=== PATIENT | female | born 1955 | race Hispanic/Latino ===

== ENCOUNTER → 2020-02-18 | Outpatient (CLI) | payer OTHER ==
--- NOTE | 2020-02-18 09:30 | NUR ---
MBSS COMPLETED. -S/S OF ASPIRATION. RECOMMEND REGULAR TEXTURE, THIN LIQUIDS; PILLS WHOLE WITH THIN LIQUIDS. TILE PRESSER PROVIDED Pt WITH RESULTS AND RECOMMENDATIONS VIA VERBAL AND WRITTEN MODALITY. ALL QUESTIONS ANSWERED AT THIS TIME. Addendum: 02/18/20 at 1305 by LINDSAY VO, [facility], [address] Amended: Links added.
== END | disposition home or self-care (01) ==
LOC: EDBD 01-07 10:00 → RAH 08:53
PROVIDERS: ATTEND Internal Medicine Gastroenterology
DX: R13.12 Dysphagia, oropharyngeal phase (principal)
CPT/HCPCS: 74230; 92611

== ENCOUNTER → 2021-06-08 | Outpatient (CLI) | payer OTHER, MEDICARE | END | disposition home or self-care (01) | LOC: RAH 13:41 | PROVIDERS: ATTEND Family Medicine | DX: G45.9 Transient cerebral ischemic attack, unspecified (principal); G31.9 Degenerative disease of nervous system, unspecified; H50.9 Unspecified strabismus; I67.82 Cerebral ischemia | CPT/HCPCS: 70551 ==

== ENCOUNTER 2021-07-04 06:29 | Observation (INO) | payer OTHER, MEDICARE ==
[2021-07-01 10:19] LABS: BASOPHILS % (AUTO) 0.8 % (0.0-5.0); EOSINOPHILS % (AUTO) 3.6 % (0.0-8.0); HEMATOCRIT 37.5 % (36-48); LYMPHOCYTES % (AUTO) 25.7 % (21.0-51.0); MEAN CORPUSCULAR HEMOGLOBIN 28.8 pg (27.0-33.0); MEAN CORPUSCULAR HGB CONC 31.7 g/dL (32.0-36.0); MEAN CORPUSCULAR VOLUME 90.8 fL (79-99); MONOCYTES % (AUTO) 6.9 % (3.0-13.0); NEUTROPHILS % (AUTO) 62.1 % (40.0-77.0); PLATELET COUNT (AUTO) 440 K/uL (130-400); RED BLOOD CELL COUNT(AUTO) 4.13 MIL/uL (4.00-5.50); RED CELL DISTRIBUTION WIDTH 13.5 % (11.0-15.5); WHITE BLOOD COUNT (AUTO) 9.5 K/uL (4.8-10.8)
[2021-07-01 10:30] LABS: APPEARANCE,URINE Clear (CLEAR); BILIRUBIN,URINE Negative (NEGATIVE); COLOR,URINE Yellow (YELLOW); GLUCOSE, URINE (UA) >=1000 mg/dL (NEGATIVE); KETONES,URINE Negative (NEGATIVE); LEUKOCYTE ESTERASE ,URINE Negative (NEGATIVE); NITRATE,URINE Negative (NEGATIVE); OCCULT BLOOD,URINE Negative (NEGATIVE); PROTEIN,URINE POS 2+ mg/dL (NEGATIVE); UROBILINOGEN,URINE 0.2 mg/dL (0.2-1.0)
[2021-07-01 10:30] LABS: INR 0.89 (0.85-1.15); PROTHROMBIN TIME 9.8 SEC (9.6-11.6)
[2021-07-01 10:44] LABS: BACTERIA,URINE Rare /HPF (None Seen); RBC,URINE 0-1 /HPF (0-1); SQUAMOUS EPITHELIAL CELL,UR Rare /HPF (0-2); WBC,URINE 0-1 /HPF (0-1)
[2021-07-01 11:17] LABS: CREATININE 0.9 mg/dL (0.5-1.5); POTASSIUM 4.1 mmol/L (3.5-5.1)
[2021-07-01 13:52] VITALS: BP 160/85
[~2021-07-04] VITALS: Ht 142.2 cm; Wt 107.9 kg
[2021-07-04] VITALS (27 sets, daily range): BP systolic 100–198; BP diastolic 42–89
[~2021-07-04 06:29] MED LIST: BACL10TA PO; CALC-1125 PO; EMPA25TA PO; ESLI600T PO; GABA-529 PO; INSU100V37 SQ; LOSA50TA64 PO; NORT25CA3 PO; OMEP40CA21 PO; ROSU5TAB12 PO
[2021-07-04] MEDS ORDERED: 0.9%NACL 1000ML 1,000 ML IV ONE (06:59)
[2021-07-04] MEDS: CEFAZOLIN SODIUM 1 GM VIAL ONE ×2 (07:15→09:00)
[2021-07-04] MEDS ORDERED: LIDOCAINE PF 100MG/5ML (2%) SYRINGE 5ML ONE (07:34)
[2021-07-04] MEDS ORDERED: MIDAZOLAM HCL 1 MG/ML 2ML VIAL ONE (07:35)
[2021-07-04] MEDS ORDERED: FENTANYL CITRATE PF 50 MCG/1 ML 5ML AMP IV ONE (07:35)
[2021-07-04] MEDS ORDERED: PROPOFOL 10 MG/ML 20ML VIAL IV ONE ×2 (07:35→09:53)
[2021-07-04] MEDS ORDERED: EPHEDRINE SULFATE 50 MG/ML AMPULE ONE (08:46)
[2021-07-04] MEDS ORDERED: ROCURONIUM 10MG/1ML SYR 10 MG/ML ML ONE (09:04)
[2021-07-04] MEDS ORDERED: CEFAZOLIN SODIUM 1 GM VIAL ONE (09:08)
[2021-07-04] MEDS ORDERED: VASOPRESSIN 20 UNITS/ML 1ML VIAL ONE (09:20)
[2021-07-04] MEDS ORDERED: KCL 20 MEQ ERTAB PO PRN (10:30)
[2021-07-04] MEDS ORDERED: HYDROCODONE/ACETAMINOPHEN 5/325 MG TAB PO PRN (10:30)
[2021-07-04] MEDS ORDERED: LIDOCAINE HCL-MPF 1% 2ML VIAL IV PRN (10:30)
[2021-07-04] MEDS ORDERED: ONDANSETRON 4MG INJ IVP PRN (10:30)
[2021-07-04] MEDS ORDERED: POTASSIUM CHLORIDE 20MEQ/100ML 100 ML IV PRN (10:30)
[2021-07-04] MEDS ORDERED: DiphenhydrAMINE HCL 50 MG/ML VIAL IVP PRN (10:30)
[2021-07-04] MEDS ORDERED: CALCIUM CARB 500MG PO PRN (10:30)
[2021-07-04] MEDS ORDERED: TEMAZEPAM 15 MG CAPSULE PO PRN (10:30)
[2021-07-04] MEDS: ACETAMINOPHEN 500 MG TABLET PO SCH ×2 (10:30→20:29)
[2021-07-04] MEDS ORDERED: FERROUS FUMARATE 324 MG TABLET PO PRN (10:30)
[2021-07-04] MEDS ORDERED: 0.9%NACL 1000ML 1,000 ML IV SCH (10:30)
[2021-07-04] MEDS ORDERED: POTASSIUM CHLORIDE 10% ELIXIR 20 MEQ/15 ML UDCUP PO PRN (10:30)
[2021-07-04] MEDS: INSULIN HUMULIN R 100 UNIT/ML 3ML SQ SCH ×3 (11:30→20:29)
[2021-07-04] MEDS: HYDROCODONE/ACETAMINOPHEN 5/325 MG TAB PO PRN (14:12)
[2021-07-04] MEDS: CEFAZOLIN SODIUM 1 GM VIAL IVP SCH ×2 (15:50→23:13)
[2021-07-04] MEDS: KETOROLAC 15MG/ML VIAL (15MG/ML) IV PRN (16:03)
[2021-07-04] MEDS: **HM**(Empagliflozin (Jardiance) 25 MG PO SCH (20:07)
[2021-07-04] MEDS: INSULIN DEGLUDEC 50 UNIT SQ SCH (20:07)
[2021-07-04] MEDS: GABAPENTIN 300 MG CAPSULE PO SCH (20:29)
[2021-07-04] MEDS: CELECOXIB 200 MG CAP PO SCH (20:29)
[2021-07-04] MEDS: BACLOFEN 10 MG TABLET PO SCH (20:29)
[2021-07-04] MEDS: **HM**NORTRIPTYLINE HCL 25 MG CAPSULE PO SCH (21:00)
[2021-07-05] MEDS: ACETAMINOPHEN 500 MG TABLET PO SCH ×3 (01:42→18:15)
[2021-07-05 05:12] VITALS: BP 111/49
[2021-07-05] MEDS: HYDROCODONE/ACETAMINOPHEN 5/325 MG TAB PO PRN ×3 (05:53→23:08)
[2021-07-05] MEDS: INSULIN HUMULIN R 100 UNIT/ML 3ML SQ SCH ×4 (06:07→21:00)
[2021-07-05 06:33] LABS: HEMATOCRIT 32.2 % (36-48); MEAN CORPUSCULAR HEMOGLOBIN 29.1 pg (27.0-33.0); MEAN CORPUSCULAR HGB CONC 31.1 g/dL (32.0-36.0); MEAN CORPUSCULAR VOLUME 93.6 fL (79-99); RED BLOOD CELL COUNT(AUTO) 3.44 MIL/uL (4.00-5.50); RED CELL DISTRIBUTION WIDTH 13.8 % (11.0-15.5); WHITE BLOOD COUNT (AUTO) 8.6 K/uL (4.8-10.8)
[2021-07-05 06:44] LABS: CREATININE 0.8 mg/dL (0.5-1.5); POTASSIUM 3.8 mmol/L (3.5-5.1)
[2021-07-05 07:42] VITALS: BP 125/59
[2021-07-05] MEDS: GABAPENTIN 300 MG CAPSULE PO SCH ×3 (07:53→20:33)
[2021-07-05] MEDS: POLYETHYLENE GLYCOL 3350 17 GM POWD.PACK PO SCH (07:53)
[2021-07-05] MEDS: BACLOFEN 10 MG TABLET PO SCH ×2 (07:53→20:33)
[2021-07-05] MEDS: CELECOXIB 200 MG CAP PO SCH ×2 (07:53→20:32)
[2021-07-05] MEDS: CALCIUM CARB 500MG PO SCH (07:53)
[2021-07-05] MEDS: PANTOPRAZOLE 40 MG TAB DR PO SCH (08:09)
[2021-07-05] MEDS: ATORVASTATIN 10 MG TABLET PO SCH (08:09)
[2021-07-05] MEDS: KETOROLAC 15MG/ML VIAL (15MG/ML) IV PRN ×2 (08:33→23:13)
[2021-07-05] MEDS: LOSARTAN 50 MG TABLET PO SCH (09:00)
[2021-07-05] MEDS: **HM**NORTRIPTYLINE HCL 25 MG CAPSULE PO SCH ×2 (09:00→21:33)
[2021-07-05] MEDS: CARBAMAZEPINE 200 MG TABLET PO SCH ×4 (09:00→20:32)
[2021-07-05 11:12] VITALS: BP 123/54
[2021-07-05 16:20] VITALS: BP 126/58
[2021-07-05 20:32] VITALS: BP 130/71
[2021-07-05] MEDS: INSULIN DEGLUDEC 50 UNIT SQ SCH (21:33)
[2021-07-05] MEDS: **HM**(Empagliflozin (Jardiance) 25 MG PO SCH (21:33)
[2021-07-05] MEDS ORDERED: MEPERIDINE-PF 25 MG/ML SYG ONE (23:46)
[2021-07-06] VITALS: BP_SYST 115; BP_DIAS 54; BP_DIAS 59
[2021-07-06] MEDS ORDERED: MEPERIDINE-PF 25 MG/ML SYG IVP PRN
[2021-07-06] MEDS: ACETAMINOPHEN 500 MG TABLET PO SCH ×4 (03:32→17:40)
[2021-07-06 04:10] VITALS: BP 130/53
[2021-07-06] MEDS: INSULIN HUMULIN R 100 UNIT/ML 3ML SQ SCH ×3 (05:31→16:30)
[2021-07-06 08:02] VITALS: BP 137/67
[2021-07-06] MEDS: BACLOFEN 10 MG TABLET PO SCH (08:03)
[2021-07-06] MEDS: CELECOXIB 200 MG CAP PO SCH (08:03)
[2021-07-06] MEDS: CALCIUM CARB 500MG PO SCH (08:03)
[2021-07-06] MEDS: ATORVASTATIN 10 MG TABLET PO SCH (08:03)
[2021-07-06] MEDS: PANTOPRAZOLE 40 MG TAB DR PO SCH (08:04)
[2021-07-06] MEDS: POLYETHYLENE GLYCOL 3350 17 GM POWD.PACK PO SCH (08:04)
[2021-07-06] MEDS: GABAPENTIN 300 MG CAPSULE PO SCH ×3 (08:04→17:30)
[2021-07-06] MEDS: HYDROCODONE/ACETAMINOPHEN 5/325 MG TAB PO PRN (08:55)
[2021-07-06] MEDS: CARBAMAZEPINE 200 MG TABLET PO SCH (09:00)
[2021-07-06] MEDS: **HM**NORTRIPTYLINE HCL 25 MG CAPSULE PO SCH (09:00)
[2021-07-06 11:13] VITALS: BP 147/67
[2021-07-06] MEDS: LOSARTAN 50 MG TABLET PO SCH (13:18)
[2021-07-06 15:40] VITALS: BP 138/68
[2021-07-06] MEDS ORDERED: MACR100 PO (18:55)
[2021-07-06] MEDS ORDERED: AEC81 PO (18:55)
[2021-07-06] MEDS ORDERED: ENOXAPARIN SODIUM 40 MG/0.4 ML SYRINGE SQ ONE ×2 (19:47→20:00)
[2021-07-07] MEDS ORDERED: PHARMACY COMMUNICATION MISC SCH (09:00)
[2021-07-07] MEDS ORDERED: APTIOM 600 MG PO SCH (09:00)
[2021-07-07] MEDS ORDERED: BISACODYL 10 MG SUPP.RECT RC PRN (10:30)
== END 2021-07-06 20:15 | disposition home health service (06) ==
LOC: DAH 06:29 → DAHIP 06:30 → DAH 06:30 → 3AH 11:22
PROVIDERS: ADMIT Orthopaedic Surgery; ATTEND Orthopaedic Surgery
DX: M25.362 Other instability, left knee (principal); T84.093A Other mechanical complication of internal left knee prosthesis, initial encounter; D64.9 Anemia, unspecified; E78.00 Pure hypercholesterolemia, unspecified; G89.29 Other chronic pain; M65.862 Other synovitis and tenosynovitis, left lower leg; Z96.653 Presence of artificial knee joint, bilateral
CPT/HCPCS: 27488; 36415 ×2; 80048 ×2; 81001; 82948 ×10; 85025; 85027; 85610; 87077; 87088; 87186; 87635; 87641; 96372 ×2; 96374; 96375; 96376 ×2; 97039 ×5; 97116 ×4; 97161; 97530 ×5; A4213; A4215; A4216; A4221; A4222; A4223 ×2; A4600; A4649 ×4; A4663; A5120; A6223; A9272; C1776; C9803; G0378 ×56; J0690 ×4; J1650; J1885 ×3; J2001; J2175; J2250; J2704 ×2; J3010; J3490 ×2; J7030 ×2